=== PATIENT | female | born 1995 | race African-American/Black ===

== ENCOUNTER 2016-08-16 14:36 | Emergency (ER) | payer OTHER ==
[~2016-08-16] VITALS: Ht 180.3 cm; Wt 106.0 kg
[~2016-08-16 14:36] MED LIST: CEPH500 PO; HYDR-3533 PO; SULF-154 PO
[2016-08-16 14:39] VITALS: BP 119/72; PULSE 106; RESP 20; TEMP 100.6; O2SAT 96
[2016-08-16 16:08] VITALS: TEMP 102
[2016-08-16] MEDS ORDERED: IBUPROFEN 800 MG TAB PO ONE (16:45)
--- NOTE | 2016-08-16 17:05 | PD ---
HPI Chief Complaint: ENT Complaint Time Seen by Provider: 16:40 Travel History International Travel<30 days: No Contact w/Intl Traveler<30days: No Traveled to known affect area: No History of Present Illness HPI Patient is a 21-year-old female who presented to emergency apartment for evaluation of a sore throat, nasal congestion, cough, fevers. States her symptoms started 2 days ago. She last took ibuprofen this morning. She denies any dysphagia or inability to control her secretions. Patient reports a history of tonsillectomy, adenoidectomy. Plaints today. She denies any nausea , vomiting, chest pain, shortness of breath. PFSH Past Medical History Medical History: Denies Significant Hx Diminished Hearing: No ?: Not Past Surgical History Tonsillectomy: Yes Social History Alcohol Use: No Tobacco Use: No Substance Use: No Allergies-Medications (Allergen,Severity, Reaction): Coded Allergies: No Known Allergies (Unverified , 08/16/16) Reported Meds & Prescriptions Reported Meds & Active Scripts Active Review of Systems Except as stated in HPI: all other systems reviewed are Neg General / Constitutional: Positive: Fever, Chills HENT: Positive: Sore Throat, Rhinitis, Congestion Respiratory: Positive: Cough, No: Shortness of Breath, Wheezing Gastrointestinal: No: Nausea, Vomiting, Diarrhea, Abdominal Pain Musculoskeletal: No: Myalgias Physical Exam Narrative GENERAL: Well-nourished, well-developed patient. SKIN: Warm and dry. HEAD: Normocephalic. ENT: Mucosa pink and moist. No uvular edema. No uvular, palatal, or tonsillar deviation. Airway patent. Nasal turbinates appear normal without nasal blood, purulent drainage or septal hematoma. Posterior pharynx is erythematous with cobblestoning appearance. EYES: No scleral icterus. No injection or drainage. NECK: Supple, trachea midline. No JVD or lymphadenopathy. CARDIOVASCULAR: Regular rate and rhythm without murmurs, gallops, or rubs. RESPIRATORY: Breath sounds equal bilaterally. No accessory muscle use. GASTROINTESTINAL: Abdomen soft, non-tender, nondistended. MUSCULOSKELETAL: No cyanosis, or edema. BACK: Nontender without obvious deformity. No CVA tenderness. Data Data Last Documented VS Vital Signs Date Time Temp Pulse Resp B/P Pulse Ox O2 Delivery O2 Flow Rate FiO2 08/16/16 16:08 102.0 08/16/16 14:39 106 20 119/72 96 Room Air Orders Group A Rapid Strep Screen (08/16/16 16:43) Influenzae A/B Antigen (08/16/16 16:43) Ibuprofen (Motrin) (08/16/16 16:45) Strep Culture (Group A) (08/16/16 16:00) MDM Medical Decision Making Medical Screen Exam Complete: Yes Emergency Medical Condition: Yes Interpretation(s) Vital Signs Date Time Temp Pulse Resp B/P Pulse Ox O2 Delivery O2 Flow Rate FiO2 08/16/16 16:08 102.0 08/16/16 14:39 100.6 106 20 119/72 96 Room Air Differential Diagnosis Pharyngitis versus influenza versus viral URI versus bronchitis versus other Narrative Course Patient is a 21-year-old female who presents emergency for evaluation of congestion, fever, sore throat. Patient was febrile on arrival, she was given ibuprofen 800 mg 1 dose. Nasal aspirate was obtained to assess for influenza. Patient is positive for influenza B. She was advised of finding, she will be prescribed Tamiflu. She was advised that she should continue with ibuprofen every 6-8 hours for fevers and pain on a continue symptom management, maintain adequate fluid intake, and rest. Patient was encouraged to stay home from work until she is fever free for 24 hours. Patient verbalized understanding of these instructions. Additionally patient was encouraged to come back to emergency department for any new or worsening symptoms. Patient is stable for discharge. Diagnosis Primary Impression: Influenza B Referrals: Primary Care Physician Patient Instructions: General Instructions, Influenza (ED) Additional Instructions: Rest, maintain adequate fluid intake, continue symptomatic management Tamiflu as directed Ibuprofen for pain and fevers Return to emergency department for any new or worsening symptoms Med/Other Pt SpecificInfo: Prescription(s) given Scripts Ibuprofen 800 Mg [id number] Mg PO Q6HR PRN (PAIN) #40 TAB Ref 0 Prov:Jennifer Atwood 08/16/16 Oseltamivir (Tamiflu)75 Mg Cap75 Mg PO BID 5 Days Ref 0 Prov:Jennifer Atwood 08/16/16 Disposition: 01 DISCHARGE HOME Condition: Stable Jennifer Atwood Aug 16, 2016 17:05
[2016-08-16] MEDS ORDERED: OSEL75 PO (17:34)
[2016-08-16] MEDS ORDERED: IBUP800T23 PO (17:34)
[2016-08-16 17:47] VITALS: TEMP 99
== END 2016-08-16 17:48 | disposition home or self-care (01) ==
LOC: NEPB 14:36
DX: J10.1 Influenza due to other identified influenza virus with other respiratory manifestations (principal)
CPT/HCPCS: 87081; 87804; 87880; 99283

== ENCOUNTER 2016-08-27 09:59 | Emergency (ER) | payer OTHER ==
[~2016-08-27] VITALS: Ht 180.3 cm; Wt 130.0 kg
[~2016-08-27 09:59] MED LIST changes: -CEPH500 PO; -HYDR-3533 PO; +IBUP800T23 PO; +OSEL75 PO; -SULF-154 PO
[2016-08-27 10:00] VITALS: BP 133/86; PULSE 91; RESP 14; TEMP 98.1; O2SAT 99
--- NOTE | 2016-08-27 11:10 | PD ---
HPI Chief Complaint: Medical Clearance Time Seen by Provider: 11:08 Travel History International Travel<30 days: No Contact w/Intl Traveler<30days: No Traveled to known affect area: No History of Present Illness HPI 21-year-old female presents to the emergency department requesting a note for work. The patient states that she had the influenza virus 08/16/16 and was seen in our emergency department at that time. States that she subsequently missed 3 days of work and needs a note excusing her from work. She states that her symptoms have completely resolved and she is feeling well. She denies any fever , chills, nausea, vomiting, chest pain, shortness of breath, cough or cold symptoms. No other complaints. PFSH Past Medical History Medical History: Denies Significant Hx Diminished Hearing: No ?: Not LMP: 08/19/16 Past Surgical History Tonsillectomy: Yes Social History Alcohol Use: No Tobacco Use: No Substance Use: No Allergies-Medications (Allergen,Severity, Reaction): Coded Allergies: No Known Allergies (Unverified , 08/27/16) Reported Meds & Prescriptions Reported Meds & Active Scripts Active No Active Prescriptions or Reported Medications Review of Systems Except as stated in HPI: all other systems reviewed are Neg Physical Exam Narrative GENERAL: Well-nourished and well-developed pleasant female patient in no acute distress who is nontoxic appearing. SKIN: Warm and dry. HEAD: Normocephalic and atraumatic. EYES: No injection, drainage, or hyphema noted. PERRLA. EOMI. ENT: No nasal drainage noted. Oropharynx is clear. NECK: Supple and the trachea is midline. CARDIOVASCULAR: Regular rate and rhythm. RESPIRATORY: Breath sounds are equal bilaterally with no accessory muscle use, wheezing, rhonchi, or crackles. NEUROLOGICAL: Awake, alert, and oriented. Normal speech and gait. Cranial nerves are grossly intact. Data Data Last Documented VS Vital Signs Date Time Temp Pulse Resp B/P Pulse Ox O2 Delivery O2 Flow Rate FiO2 08/27/16 10:00 98.1 91 14 133/86 99 MDM Medical Decision Making Medical Screen Exam Complete: Yes Emergency Medical Condition: Yes Differential Diagnosis Medical clearance versus return to work versus normal exam Narrative Course 21-year-old female presents to the emergency department requesting a note to excuse her from work. Patient is afebrile, vital signs are stable. Patient was seen in our ED 08/16/16 and diagnosed with influenza B virus. She missed 3 days of work and needs a note to give to her job. She is provided with this note. Advised follow-up with the PCP. Diagnosis Primary Impression: Normal physical exam Referrals: Primary Care Physician Patient Instructions: General Instructions, Normal Exam (ED) Departure Forms: Tests/Procedures, Work Release Special Instructions: Please excuse patient from missing work 08/16/16, 08/17/16 , and 08/18/16 due to illness. Med/Other Pt SpecificInfo: No Change to Meds Scripts No Active Prescriptions or Reported Meds Disposition: 01 DISCHARGE HOME Condition: Stable Rosi Cloud Aug 27, 2016 11:10
== END 2016-08-27 12:01 | disposition home or self-care (01) ==
LOC: NEPB 09:59
DX: Z02.89 Encounter for other administrative examinations (principal)
CPT/HCPCS: 99282

== ENCOUNTER 2016-11-14 16:47 | Emergency (ER) | payer SELFPAY ==
[~2016-11-14] VITALS: Ht 180.3 cm; Wt 112.0 kg
[2016-11-14 16:50] VITALS: BP 138/80; PULSE 102; RESP 12; TEMP 98.1; O2SAT 98
--- NOTE | 2016-11-14 16:53 | PD ---
Physical Exam Date Seen by Provider: Nov 14, 2016 Time Seen by Provider: 16:51 Narrative 21 YOBF C/O ALLERGIC REACTION FOR MEDS VSS. AWAITING BED PLACEMENT Data Data Last Documented VS Vital Signs Date Time Temp Pulse Resp B/P Pulse Ox O2 Delivery O2 Flow Rate FiO2 11/14/16 16:50 98.1 102 12 138/80 98 MDM Medical Record Reviewed: Yes Supervised Visit with VALERIA: Yes Scripts No Active Prescriptions or Reported Meds Rubin Johnston Nov 14, 2016 16:53
--- NOTE | 2016-11-14 17:04 | PD ---
HPI Chief Complaint: Allergic/Adverse Reaction Time Seen by Provider: 17:01 Travel History International Travel<30 days: No Contact w/Intl Traveler<30days: No Traveled to known affect area: No History of Present Illness HPI Patient watching a video on her phone during history of present illness and physical exam and seemed uninterested in interaction during interviewing and physical examination. She reports having a tooth pulled and was put on an antibiotic and a pain medication. She doesn't know the name of the antibiotic; she says the bottle is at home in her purse. Her pain medication is oxycodone. She says she has stopped taking the medications. She has never taken either one of these medications before. She had a rash to her bilateral upper extremities and lower extremities that appeared last night but is not there anymore. She says the rash was itchy. She woke up with her eyes swollen this morning, which have also subsided. Denies fever, chills, nausea, vomiting. No known allergies. No other modified factors or associated signs and symptoms. [facility] Past Medical History Diminished Hearing: No ?: Not Past Surgical History Tonsillectomy: Yes Social History Alcohol Use: No Tobacco Use: No Substance Use: No Allergies-Medications (Allergen,Severity, Reaction): Coded Allergies: No Known Allergies (Unverified , 08/27/16) Reported Meds & Prescriptions Reported Meds & Active Scripts Active No Active Prescriptions or Reported Medications Review of Systems Except as stated in HPI: all other systems reviewed are Neg Physical Exam Narrative GENERAL: Well-nourished, well-developed patient, in no acute distress; patient watching a video on her Phone during physical exam SKIN: Warm and dry. No rash noted. HEAD: Atraumatic. Normocephalic. EYES: No swelling noted. Pupils equal and round. No scleral icterus. No injection or drainage. ENT: Mucosa pink and moist. No erythema or exudates. No uvular edema. No uvular , palatal, or tonsillar deviation. Airway patent. EARS: Bilateral pinnae and external canals appear within normal limits. Bilateral tympanic membranes without erythema, dullness or perforation. NECK: Trachea midline. CARDIOVASCULAR: Regular rate and rhythm. No murmur appreciated. RESPIRATORY: No accessory muscle use. Breath sounds clear and equal bilaterally. No retractions or tachypnea. GASTROINTESTINAL: Obese. MUSCULOSKELETAL: No obvious deformities. No clubbing. No cyanosis. No edema. NEUROLOGICAL: Awake and alert. Oriented 3. No obvious cranial nerve deficits. Motor grossly within normal limits. Normal speech. PSYCHIATRIC: Appropriate mood and affect; insight and judgment normal. Data Data Last Documented VS Vital Signs Date Time Temp Pulse Resp B/P Pulse Ox O2 Delivery O2 Flow Rate FiO2 11/14/16 16:50 98.1 102 12 138/80 98 MDM Medical Decision Making Medical Screen Exam Complete: Yes Emergency Medical Condition: Yes Medical Record Reviewed: Yes Differential Diagnosis Allergic reaction caused by a drug, hives, generalized allergic reaction Narrative Course 21-year-old female physical exam is normal. She presents with apparent allergic reaction to either an antibiotic or pain medication after having a tooth pulled. She doesn't know the name of the antibiotic she was taking. She stopped taking the medication immediately and has not taken it since last night. She had a rash to her extremities last night which has subsided. She also woke up this morning with swelling to her eyes which is also subsided. She is in no acute distress and her oxygen saturation is 98% on room air. Airway is patent. Lungs are clear and equal bilaterally. Chest without wheezing, stridor. She is speaking in full sentences and without retractions or tachypnea. No rash noted. Eyes are not swollen. Heart rate on physical exam is approximately 80-90 bpm. Instructed patient not to take the medications again. Instructed patient to follow up with her dentist for antibiotic change. Insert the patient to take Benadryl as directed and as needed for symptom management. Patient verbalizes understanding and agreement with treatment plan. Patient is medically cleared and stable for discharge. Discussed reasons to return to the emergency department. Instructed patient to follow up with primary care provider. Patient agrees with treatment plan. The patients vital signs are stable and the patient is stable for outpatient follow- up and treatment. Patient discharged home, stable and in no acute distress. Diagnosis Primary Impression: Allergic reaction caused by a drug Qualified Code: T78.40XA - Allergic reaction caused by a drug, initial encounter Additional Impression: Normal physical exam Referrals: Dentist Primary Care Physician Patient Instructions: General Allergic Reaction (ED), General Instructions, Normal Exam (ED) Departure Forms: Tests/Procedures, Work Release Enter return to work date: Nov 15, 2016 Additional Instructions: Do not take the medications that you have a home that were provided by your dentist Follow-up with your dentist for antibiotic pattern changer and [id number] topicals to reduce itch Benadryl as directed and as needed to reduce itch Follow-up with your primary care provider Follow-up with your dentist Return to the emergency department immediately with worsening of symptoms Med/Other Pt SpecificInfo: Med Stopped, No Meds Exist/No RX given Scripts No Active Prescriptions or Reported Meds Disposition: 01 DISCHARGE HOME Condition: Stable Rosi Alvarado [facility] Nov 14, 2016 17:03
== END 2016-11-14 17:26 | disposition home or self-care (01) ==
LOC: NETRI 16:47
DX: T78.40XA Allergy, unspecified, initial encounter (principal)
CPT/HCPCS: 99283